=== PATIENT | female | born 1960 | race Caucasian/White ===

== ENCOUNTER 2022-06-20 22:47 | Emergency (ER) | payer OTHER ==
[~2022-06-20] VITALS: Ht 157.5 cm; Wt 68.0 kg
--- NOTE | 2022-06-21 01:00 | NUR ---
Pt. in room and said she does not want to be in a room with another patient, so she stayed and sit in the hallway. She checked her blood sugar using her own equipment, shows 99. Tuna sandwich and cranberry juice offered
== END 2022-06-21 02:15 | disposition left against medical advice (07) ==
LOC: ER 22:47
DX: E10.8 Type 1 diabetes mellitus with unspecified complications (principal); Z53.29 Procedure and treatment not carried out because of patient's decision for other reasons
CPT/HCPCS: A4663